=== PATIENT | male | born 1995 | race Two or more races ===

== ENCOUNTER 2020-06-14 11:30 | Emergency (ER) | payer MEDICAID ==
[~2020-06-14] VITALS: Ht 185.4 cm; Wt 90.7 kg
[2020-06-14 11:40] VITALS: BP 133/75
== END 2020-06-14 13:44 | disposition home or self-care (01) ==
LOC: ER 11:30
DX: G51.0 Bell's palsy (principal)
CPT/HCPCS: 70450; 93005